=== PATIENT | female | born 1955 | race Caucasian/White ===

== ENCOUNTER 2018-02-06 13:21 | Emergency (ER) | payer BC ==
--- NOTE | 2018-02-06 13:56 | ED Physician Documentation ---
PD HPI Fall - Stated complaint Stated Complaint: GLF - Chief complaint Chief Complaint: Trauma Ext - History obtained from History obtained from: Patient - History of Present Illness Mechanism of injury: Tripped (over driftwood, lost balance and fell backward/ right side. Struck back of head, right elbow and the elbow injury felt that it pushed up on her shoulder. Pain with ROM of elbow or shoulder.) Fall distance: Standing position Where injury occurred: Other (beach) Timing - onset: Today Injury(ies) location: Head (occiput area), Right Upper Extremity (landed on elbow and jammed right shoulder, with pain right shoulder with any ROM. Elbow hurts with ROM and particularly with full extension.) Associated symptoms: No: LOC, AMS, Weakness, Paresthesias, Nausea / vomiting Symptoms improve with: Rest (not moving the shoulder) Worsens with: Movement, Palpation Contributing factors: No: Anticoagulated, Intoxicated Similar symptoms before: Has not had sx before Recently seen: Not recently seen Review of Systems Constitutional: denies: Fever Nose: denies: Rhinorrhea / runny nose, Congestion Throat: denies: Sore throat Cardiac: denies: Chest pain / pressure Respiratory: denies: Dyspnea, Cough GI: denies: Abdominal Pain, Nausea, Vomiting Skin: reports: Laceration (s) (back of head). denies: Abrasion (s) Musculoskeletal: reports: Joint pain (right shoulder and elbow) Neurologic: reports: Head injury. denies: Focal weakness, Numbness, Syncope, Confused, Altered mental status, LOC PD PAST MEDICAL HISTORY - Past Medical History Cardiovascular: None Respiratory: None Neuro: None Endocrine/Autoimmune: None - Present Medications Home Medications: Ambulatory Orders Medication Instructions Recorded Confirmed FLUoxetine [PROzac] 20 mg 02/06/18 HYDROcod/ACETAM 5/325 [[place] 5/325] 1 tab PO Q6H PRN #15 tablet 02/06/18 Naproxen 375 mg PO BID #20 tablet 02/06/18 Pravastatin [Pravachol] 10 mg 02/06/18 metFORMIN [Glucophage] 500 mg 02/06/18 - Allergies Allergies/Adverse Reactions: Allergies Allergy/AdvReac Type Severity Reaction Status Date / Time meperidine [From Demerol] Allergy Mild Hallucinati Verified 02/06/18 13:38 ons red dye Allergy Mild Hives Verified 02/06/18 13:38 PD ED PE NORMAL - Vitals Vital signs reviewed: Yes - General General: Alert and oriented X 3, Well developed/nourished, Other (appears in pain due to shoulder and elbow mainly. guarded ROM. ) - HEENT HEENT: PERRL, EOMI, Other (back of head with 1 cm laceration, with edges close together and no FB nor active bleeding. ) - Neck Neck: Supple, no meningeal sign, No bony TTP, No adenopathy - Cardiac Cardiac: RRR, No murmur - Respiratory Respiratory: Clear bilaterally - Abdomen Abdomen: Soft, Non tender - Back Back: No CVA TTP, No spinal TTP - Derm Derm: Normal color, Warm and dry - Extremities Extremities: Other (right elbow with abrasions posteriorly. No effusion, no gross deformity. ROM reasonable though hurts for full extension. Right shoulder with pain on any ROM. No gross deformity. Passive stress testing limited due to pain with ROM. ) - Neuro Neuro: Alert and oriented X 3, No motor deficit, Normal speech Eye Opening: Spontaneous Motor: Obeys Commands Verbal: Oriented GCS Score: 15 Results - Vitals Vitals: Vital Signs - 24 hr 02/06/18 02/06/18 02/06/18 13:32 14:52 15:48 Temperature 36.6 C 36.6 C Heart Rate 82 94 88 Respiratory 16 17 16 Rate Blood Pressure 117/62 112/70 120/80 O2 Saturation 100 93 96 Oxygen O2 Source Room air - Rads (name of study) right shoulder Radiology: Prelim report reviewed, EMP read contemporaneously (small speck off glenoid c/w avulsion or loose body. No significant fracture.) right elbow Radiology: Prelim report reviewed (no fracture. ) PD MEDICAL DECISION MAKING - ED course Complexity details: reviewed results, considered differential (significant pain for moving shoulder, but not fractures/dislocated, so presume likely a rotator cuff tear or glenoid/labrum injury. The scalp was sealed with Dermabond. ), d/ w patient - Sepsis Event Vital Signs: Vital Signs - 24 hr 02/06/18 02/06/18 02/06/18 13:32 14:52 15:48 Temperature 36.6 C 36.6 C Heart Rate 82 94 88 Respiratory 16 17 16 Rate Blood Pressure 117/62 112/70 120/80 O2 Saturation 100 93 96 Oxygen O2 Source Room air Departure - Departure Disposition: 01 Home, Self Care Clinical Impression: Fall from slip, trip, or stumble Qualifiers: Encounter type: initial encounter Qualified Code(s): W01.0XXA - Fall on same level from slipping, tripping and stumbling without subsequent striking against object, initial encounter Scalp laceration Qualifiers: Encounter type: initial encounter Qualified Code(s): S01.01XA - Laceration without foreign body of scalp, initial encounter Elbow contusion Qualifiers: Encounter type: initial encounter Laterality: right Qualified Code(s): S50.01XA - Contusion of right elbow, initial encounter Right shoulder strain Qualifiers: Encounter type: initial encounter Qualified Code(s): S46.911A - Strain of unspecified muscle, fascia and tendon at shoulder and upper arm level, right arm , initial encounter Condition: Stable Record reviewed to determine appropriate education?: Yes Instructions: ED Contusion Scalp, ED Sprain Shoulder Prescriptions: HYDROcod/ACETAM 5/325 [[place] 5/325] 1 tab PO Q6H PRN #15 tablet PRN Reason: Pain Naproxen 375 mg PO BID #20 tablet Comments: Your shoulder and elbow x-rays are without any signs of fractures. Presume just a contusion of the elbow but likely strain of the shoulder joint ligaments or muscles. You can use a sling to help reduce the motion and pain but be diligent about passive range of motion several times a day so the shoulder does not get stiff and. He is some naproxen or ibuprofen 2-3 times a day for the next week. Add Tylenol or hydrocodone if needed for worse pain. The scalp wound with the glue on it should heal up well with this that told together for now. It is okay to wash and shower. Recheck if any head injury symptoms develop. Otherwise for the shoulder follow-up with your primary care in about a week, call Thursday morning for an appointment. Discharge Date/Time: 02/06/18 15:48
[2018-02-06] MEDS ORDERED: ONDANSETRON ODT 4 MG TABLET TL STA (14:08)
[2018-02-06] MEDS ORDERED: MORPHINE 10 MG/ML VIAL IM STA (14:09)
[2018-02-06] MEDS ORDERED: HYDROcod/ACETAM 5/325 MG TABLET PO STA (14:56)
[2018-02-06] MEDS ORDERED: KETOROLAC 30 MG/ML VIAL IM STA (14:56)
--- NOTE | 2018-02-06 15:34 | XRAY Report ---
Procedure Date: 02/06/2018 Accession Number: [id number] / [id number] Procedure: XR - Shoulder 3 View RT CPT Code: FULL RESULT: EXAM: RIGHT SHOULDER RADIOGRAPHY EXAM DATE: 02/06/2018 02:33 PM. CLINICAL HISTORY: Fall to right arm/shoulder. COMPARISON: None. TECHNIQUE: 3 views. FINDINGS: Bones: 3 x 1 mm ossific fragment inferior to the glenoid. Joints: The glenohumeral and acromioclavicular joints are normal. Soft tissues: The visualized hemithorax is unremarkable. No soft tissue swelling. IMPRESSION: 1. Small ossific fragment inferior to the glenoid measuring 3 x 1 mm. Differential diagnosis includes tiny avulsion fragment or small loose body. [facility]
--- NOTE | 2018-02-06 15:36 | XRAY Report ---
Procedure Date: 02/06/2018 Accession Number: [id number] / [id number] Procedure: XR - Elbow 3 View RT CPT Code: FULL RESULT: EXAM: RIGHT ELBOW RADIOGRAPHY EXAM DATE: 02/06/2018 02:35 PM. CLINICAL HISTORY: Fall to right arm/shoulder. COMPARISON: None. TECHNIQUE: 3 views, 4 films. FINDINGS: Bones: Normal. No fractures or bone lesions. Joints: Normal. No effusion. No subluxation. Soft Tissues: Normal. No soft tissue swelling. IMPRESSION: Normal elbow radiography. [facility]
[2018-02-06 15:49] VITALS: BP 120/80
== END 2018-02-06 15:48 | disposition home or self-care (01) ==
LOC: ED 13:21
DX: S01.01XA Laceration without foreign body of scalp, initial encounter (principal); S50.311A Abrasion of right elbow, initial encounter; S50.01XA Contusion of right elbow, initial encounter; S46.911A Strain of unspecified muscle, fascia and tendon at shoulder and upper arm level, right arm, initial encounter; W01.10XA Fall on same level from slipping, tripping and stumbling with subsequent striking against unspecified object, initial encounter; Y92.832 Beach as the place of occurrence of the external cause
CPT/HCPCS: 12001; 73030; 73080; 96372; 99283; A9270; Q0162